=== PATIENT | male | born 1985 | race Caucasian/White ===

== ENCOUNTER 2020-04-22 10:30 | Emergency (ER) | payer BC ==
[2020-04-22 10:53] VITALS: RESP 18; TEMP 97.9
[2020-04-22] MEDS ORDERED: IBUPROFEN 600 MG TAB PO STA (11:09)
--- NOTE | 2020-04-22 11:21 | ED ---
General Adult HPI - General Chief complaint: Extremity Injury, Upper Stated complaint: rt wrist injury Time Seen by Provider: 04/22/20 10:55 Source: patient, RN notes reviewed Mode of arrival: ambulatory Limitations: no limitations - History of Present Illness Initial comments: 34-year-old male sent to the emergency department for a chief complaint of right wrist pain. Patient was sliding into third base yesterday in these fall. He states his wrist hit the other player's foot and caused pain. Patient states it is painful to move his wrist. Patient denies hitting his head. Denies any other injuries. Denies numbness or tingling in the hand. Denies difficulty moving any fingers.Patient has no other complaints at this time including shortness of breath, chest pain, abdominal pain, nausea or vomiting, headache, or visual changes. - Related Data Allergies Allergy/AdvReac Type Severity Reaction Status Date / Time No Known Allergies Allergy Verified 04/22/20 10:50 Review of Systems ROS Statement: Those systems with pertinent positive or pertinent negative responses have been documented in the HPI. ROS Other: All systems not noted in ROS Statement are negative. Past Medical History Past Medical History: No Reported History History of Any Multi-Drug Resistant Organisms: None Reported Past Surgical History: No Surgical Hx Reported Past Psychological History: No Psychological Hx Reported Smoking Status: Never smoker Past Alcohol Use History: Occasional Past Drug Use History: Marijuana General Exam Limitations: no limitations General appearance: alert, in no apparent distress Head exam: Present: atraumatic, normocephalic, normal inspection Eye exam: Present: normal appearance, PERRL, EOMI. Absent: scleral icterus, conjunctival injection, periorbital swelling ENT exam: Present: normal exam, mucous membranes moist Neck exam: Present: normal inspection, full ROM. Absent: tenderness, meningismus, lymphadenopathy Respiratory exam: Present: normal lung sounds bilaterally. Absent: respiratory distress, wheezes, rales, rhonchi, stridor Cardiovascular Exam: Present: regular rate, normal rhythm, normal heart sounds. Absent: systolic murmur, diastolic murmur, rubs, gallop, clicks Extremities exam: Present: tenderness (Tenderness noted to the dorsum of the wrist and ulnar aspect of the right wrist.), normal capillary refill (Capillary refill less than 2 seconds, radial pulse 2+ in the right upper extremity.), other (Sensation intact in the right upper extremity including hand. Able to move all digits.). Absent: full ROM (Patient has limited flexion and extension of the right wrist secondary to pain but mechanisms are intact.), pedal edema, joint swelling (Minimal edema noted of the dorsum of the right wrist.), calf tenderness Course Vital Signs 04/22/20 10:51 Temperature 97.9 F Pulse Rate 83 Respiratory 18 Rate Blood Pressure 130/89 O2 Sat by Pulse 100 Oximetry Procedures - Orthopedic Splinting/Casting Injury #1 Side: right Upper Extremity Injury Location: short arm Upper Extremity Immobilizer: volar splint Additional Comments: NV intact after splint applied Medical Decision Making - Medical Decision Making Neurovascular status intact right upper extremity. X-ray shows cortical lucency noted to involve the triquetrum of the lateral projection. Correlate for fracture. Mild soft tissue swelling seen. Patient was placed in a volar wrist splint. I discussed rice therapy. Discussed Tylenol for pain. Patient will follow up with orthopedics. He will return here for any worsening symptoms. - Radiology Data Radiology results: report reviewed, image reviewed (by myself and Dr Benz) Disposition Clinical Impression: Fracture of triquetrum Disposition: HOME SELF-CARE Condition: Good Additional Instructions: Please rest ice and elevate the wrist. Take Tylenol for pain. Follow-up with orthopedics in one to 2 days. Return to the emergency room for any worsening symptoms. Is patient prescribed a controlled substance at d/c from ED?: No Referrals: Lissett Arshad DO [Doctor of Osteopathic Medicine] - 1-2 days Time of Disposition: 11:49
--- NOTE | 2020-04-22 11:28 | XR ---
EXAMINATION TYPE: XR wrist complete RT, XR hand complete RT DATE OF EXAM: 04/22/2020 CLINICAL HISTORY: pain TECHNIQUE: Frontal, lateral and oblique images of the right hand and wrist are obtained. COMPARISON: None. FINDINGS: There is cortical lucency noted to involve the triquetrum on the lateral projection. Correl ate for triquetral fracture. Mild soft tissue swelling seen. Healed fracture of the head and neck of the proximal phalanx right third digit. No additional fracture suspected. The joint spaces appear wit hin normal limits. IMPRESSION: There is cortical lucency noted to involve the triquetrum on the lateral projection. Correlate for tr iquetral fracture. Mild soft tissue swelling seen.
[2020-04-22 12:11] VITALS: BP 126/74; PULSE 77
== END 2020-04-22 12:12 | disposition home or self-care (01) ==
LOC: EC 10:30
DX: S62.111A Displaced fracture of triquetrum [cuneiform] bone, right wrist, initial encounter for closed fracture (principal); W51.XXXA Accidental striking against or bumped into by another person, initial encounter; Y93.64 Activity, baseball
CPT/HCPCS: 29125; 99283